=== PATIENT | male | born 1955 | race Caucasian/White ===

== ENCOUNTER → 2020-10-06 | Outpatient (CLI) | payer OTHER | LOC: LAB 11:19 | PROVIDERS: Emergency Medicine; Nurse Practitioner Acute Care | DX: E11.65 Type 2 diabetes mellitus with hyperglycemia (principal); E78.2 Mixed hyperlipidemia; R79.89 Other specified abnormal findings of blood chemistry | CPT/HCPCS: 36415; 80053; 81256 ==

== ENCOUNTER → 2020-11-05 | Outpatient (CLI) | payer OTHER ==
[2020-11-05 13:38] LABS: HEMOGLOBIN 15.9 gm/dl (14.0-17.5); RED BLOOD COUNT 5.15 M/UL (4.20-5.50); WHITE BLOOD COUNT 5.5 K/UL (4.5-11.0)
[2020-11-05 14:13] LABS: BUN/CREATININE RATIO 13 (0-10)
[2020-11-06 19:09] LABS: HEPATITIS C QUANTITATION HCV Not Detected IU/mL (.)
== END ==
LOC: LAB 12:07
PROVIDERS: Nurse Practitioner Acute Care
DX: R76.8 Other specified abnormal immunological findings in serum (principal); R74.01 Elevation of levels of liver transaminase levels; B19.20 Unspecified viral hepatitis C without hepatic coma; Z79.899 Other long term (current) drug therapy
CPT/HCPCS: 36415; 80053; 85027; 85610; 87522

== ENCOUNTER → 2020-11-23 | Outpatient (CLI) | payer OTHER ==
[2020-11-23 09:40] LABS: HEMOGLOBIN 14.5 gm/dl (14.0-17.5); RED BLOOD COUNT 4.62 M/UL (4.20-5.50); WHITE BLOOD COUNT 5.3 K/UL (4.5-11.0)
[2020-11-23 10:08] LABS: BUN/CREATININE RATIO 12 (0-10)
[2020-11-24 12:15] LABS: HBSAG SCREEN Negative (Negative); HEP A AB, IGM Negative (Negative); HEP B CORE AB, IGM Negative (Negative)
== END ==
LOC: LAB 08:41
PROVIDERS: Emergency Medicine; Nurse Practitioner Acute Care
DX: E83.110 Hereditary hemochromatosis (principal); R74.01 Elevation of levels of liver transaminase levels; R79.89 Other specified abnormal findings of blood chemistry; B19.20 Unspecified viral hepatitis C without hepatic coma; E11.42 Type 2 diabetes mellitus with diabetic polyneuropathy; E11.65 Type 2 diabetes mellitus with hyperglycemia; E11.69 Type 2 diabetes mellitus with other specified complication; E78.2 Mixed hyperlipidemia; I25.10 Atherosclerotic heart disease of native coronary artery without angina pectoris; I11.0 Hypertensive heart disease with heart failure; I50.22 Chronic systolic (congestive) heart failure; B00.1 Herpesviral vesicular dermatitis; B18.2 Chronic viral hepatitis C; F33.1 Major depressive disorder, recurrent, moderate; F52.21 Male erectile disorder; G44.89 Other headache syndrome; G47.33 Obstructive sleep apnea (adult) (pediatric); J15.8 Pneumonia due to other specified bacteria; J30.89 Other allergic rhinitis; J01.00 Acute maxillary sinusitis, unspecified; I95.2 Hypotension due to drugs; I25.5 Ischemic cardiomyopathy
CPT/HCPCS: 36415; 80053; 82728; 83036; 84550; 85027; 85610; 86705; 86709; 87340

== ENCOUNTER → 2020-11-29 | Outpatient (CLI) | payer OTHER | LOC: KOH-I 11-17 09:15 | DX: R74.01 Elevation of levels of liver transaminase levels (principal); K76.0 Fatty (change of) liver, not elsewhere classified; N28.1 Cyst of kidney, acquired | CPT/HCPCS: 76700 ==

== ENCOUNTER → 2020-12-23 | Outpatient (CLI) | payer OTHER ==
[2020-12-23 10:45] LABS: HEMOGLOBIN 13.7 gm/dl (14.0-17.5); RED BLOOD COUNT 4.42 M/UL (4.20-5.50); WHITE BLOOD COUNT 4.2 K/UL (4.5-11.0)
== END ==
LOC: LAB 09:27
PROVIDERS: Nurse Practitioner Acute Care
DX: R74.01 Elevation of levels of liver transaminase levels (principal)
CPT/HCPCS: 36415; 80053; 82728; 85027; 85610

== ENCOUNTER → 2021-01-10 | Outpatient (CLI) | payer OTHER | LOC: LAB 12:06 | DX: K74.5 Biliary cirrhosis, unspecified (principal) | CPT/HCPCS: 36415; 82728 ==

== ENCOUNTER 2021-08-19 02:26 | Inpatient (IN) | payer OTHER ==
[~2021-08-19] VITALS: Ht 180.3 cm; Wt 117.9 kg
[2021-08-19 02:41] LABS: HEMOGLOBIN 11.3 gm/dl (14.0-17.5); RED BLOOD COUNT 5.6 M/UL (4.20-5.50); WHITE BLOOD COUNT 13.8 K/UL (4.5-11.0)
[2021-08-19 03:46] LABS: BUN/CREATININE RATIO 12 (0-10)
[2021-08-19] MEDS ORDERED: BACLOFEN10 MG PO (10:23)
[2021-08-19] MEDS ORDERED: ASPIRIN EC81 MG PO (10:23)
[2021-08-19] MEDS ORDERED: ZETIA10 MG PO (10:24)
[2021-08-19] MEDS ORDERED: BUSPIRONE HCL15 MG PO (10:24)
[2021-08-19] MEDS ORDERED: DOCUSATE SODIU100 MG PO (10:24)
[2021-08-19] MEDS ORDERED: AMARYL2 MG PO (10:25)
[2021-08-19] MEDS ORDERED: ISOSORBIDE MONO30 MG PO (10:26)
[2021-08-19] MEDS ORDERED: LORATADINE10 MG PO (10:27)
[2021-08-19] MEDS ORDERED: GABAPENTIN800 MG PO (10:27)
[2021-08-19] MEDS ORDERED: METOPROLOL TART25 MG PO (10:27)
[2021-08-19] MEDS ORDERED: NITROSTAT0.4 MG SL (10:27)
[2021-08-19] MEDS ORDERED: PROTONIX 40 MG40 M1 PO (10:28)
[2021-08-19] MEDS ORDERED: NOVOLOG FL100 UNIT/1 INJ (10:28)
--- NOTE | 2021-08-19 10:28 | NUR ---
DOING BEDSIDE BRONC WASHING PER PULMONARY DR PAREKH, STAFF FROM [facility] TO ASSIST HIM, RESPIRATORY ALOS AT BEDSIDE HERBERT
[2021-08-19] MEDS ORDERED: OXYCODONE-ACET1 EACH PO (10:29)
[2021-08-19] MEDS ORDERED: SERTRALINE HCL50 MG PO (10:30)
[2021-08-19] MEDS ORDERED: RANEXA1000 MG PO (10:30)
[2021-08-19] MEDS ORDERED: SYNJARDY XR 251 EACH PO (10:31)
[2021-08-19] MEDS ORDERED: HYDROCHLOROTHIA25 MG PO (10:32)
[2021-08-19] MEDS ORDERED: ATORVASTATIN CA10 MG PO (10:32)
[2021-08-19] MEDS ORDERED: WELLBUTRIN SR100 MG PO (10:32)
[2021-08-19] MEDS ORDERED: TERBINAFINE HC250 MG PO (10:33)
[2021-08-20 05:30] LABS: HEMOGLOBIN 9.1 gm/dl (14.0-17.5); RED BLOOD COUNT 4.61 M/UL (4.20-5.50); WHITE BLOOD COUNT 6.7 K/UL (4.5-11.0)
[2021-08-21 05:20] LABS: HEMOGLOBIN 9.7 gm/dl (14.0-17.5); RED BLOOD COUNT 4.84 M/UL (4.20-5.50)
[2021-08-21 05:21] LABS: WHITE BLOOD COUNT 9.1 K/UL (4.5-11.0)
[2021-08-21 05:42] LABS: BUN/CREATININE RATIO 12 (0-10)
[2021-08-22 07:19] LABS: HEMOGLOBIN 9.7 gm/dl (14.0-17.5); RED BLOOD COUNT 4.84 M/UL (4.20-5.50); WHITE BLOOD COUNT 7.5 K/UL (4.5-11.0)
[2021-08-22 07:55] LABS: BUN/CREATININE RATIO 16 (0-10)
[2021-08-24 03:09] LABS: BUN/CREATININE RATIO 18 (0-10)
[2021-08-24] MEDS ORDERED: NEURONTIN400 MG PO (10:50)
[2021-08-24] MEDS ORDERED: LANTUS INS100 UTS/M1 SC (14:57)
[2021-08-24] MEDS ORDERED: HUMALOG 10100 UNITS/ SC (14:57)
== END 2021-08-24 15:46 | DRG 208 ==
LOC: ER1 02:26 → CDU 04:38 → M/S 04:38 → CCU 04:38 → M/S 08-22 18:33
PROVIDERS: Family Medicine; Internal Medicine; Internal Medicine Critical Care Medicine; ADMIT Internal Medicine
PROC: 0BH18EZ Insertion of Endotracheal Airway into Trachea, Via Natural or Artificial Opening Endoscopic (ICD-10-PCS; 2021-08-19)
PROC: 0DH67UZ Insertion of Feeding Device into Stomach, Via Natural or Artificial Opening (ICD-10-PCS; 2021-08-19)
PROC: 0BC78ZZ Extirpation of Matter from Left Main Bronchus, Via Natural or Artificial Opening Endoscopic (ICD-10-PCS; 2021-08-19)
PROC: 0BC38ZZ Extirpation of Matter from Right Main Bronchus, Via Natural or Artificial Opening Endoscopic (ICD-10-PCS; 2021-08-19)
PROC: 5A1945Z Respiratory Ventilation, 24-96 Consecutive Hours (ICD-10-PCS; principal; 2021-08-19 10:18)
PROC: 5A09457 Assistance with Respiratory Ventilation, 24-96 Consecutive Hours, Continuous Positive Airway Pressure (ICD-10-PCS; 2021-08-20)
PROC: 5A12012 Performance of Cardiac Output, Single, Manual (ICD-10-PCS; 2021-08-24)
DX: J96.01 Acute respiratory failure with hypoxia (principal); J69.0 Pneumonitis due to inhalation of food and vomit; G93.41 Metabolic encephalopathy; I50.22 Chronic systolic (congestive) heart failure; I13.0 Hypertensive heart and chronic kidney disease with heart failure and stage 1 through stage 4 chronic kidney disease, or unspecified chronic kidney disease; Z20.822 Contact with and (suspected) exposure to COVID-19; I25.10 Atherosclerotic heart disease of native coronary artery without angina pectoris; E11.9 Type 2 diabetes mellitus without complications; E78.5 Hyperlipidemia, unspecified; N18.30 Chronic kidney disease, stage 3 unspecified; E11.22 Type 2 diabetes mellitus with diabetic chronic kidney disease; F17.210 Nicotine dependence, cigarettes, uncomplicated; J44.9 Chronic obstructive pulmonary disease, unspecified; Z95.5 Presence of coronary angioplasty implant and graft; Z95.810 Presence of automatic (implantable) cardiac defibrillator; Z79.82 Long term (current) use of aspirin; Z79.899 Other long term (current) drug therapy; Z83.3 Family history of diabetes mellitus
CPT/HCPCS: 31500; 36415; 36600; 51702; 70450; 71045; 71275; 74018; 80048; 80053; 82550; 82553; 82803; 82962; 83605; 83735; 83874; 84100; 84484; 85025; 85610; 85730; 87015; 87040; 87070; 87116; 87205; 87206; 87278; 92526; 92610; 93005; 94002; 94003; 94640; 94660; 94664; 94760; 96374; 96375; 97110-GP-CQ; 97116-GP-CQ; 97161; 97166; 97530-GP-CQ; 99285; C9113; J0696; J1650; J2250; J2405; J2704; J3010; J3370; J7030; J7070; Q9967; U0002

== ENCOUNTER → 2022-01-26 | Outpatient (CLI) | payer OTHER ==
[~2022-01-26] MED LIST: AMARYL2 MG PO; ASPIRIN EC81 MG PO; ATORVASTATIN CA10 MG PO; BACLOFEN10 MG PO; BUSPIRONE HCL15 MG PO; DOCUSATE SODIU100 MG PO; GABAPENTIN800 MG PO; HUMALOG 10100 UNITS/ SC; HYDROCHLOROTHIA25 MG PO; ISOSORBIDE MONO30 MG PO; LANTUS INS100 UTS/M1 SC; LORATADINE10 MG PO; METOPROLOL TART25 MG PO; NEURONTIN400 MG PO; NITROSTAT0.4 MG SL; NOVOLOG FL100 UNIT/1 INJ; OXYCODONE-ACET1 EACH PO; PROTONIX 40 MG40 M1 PO; RANEXA1000 MG PO; SERTRALINE HCL50 MG PO; SYNJARDY XR 251 EACH PO; TERBINAFINE HC250 MG PO; WELLBUTRIN SR100 MG PO; ZETIA10 MG PO
== END ==
LOC: KOH-I 01-20 10:30
DX: R10.814 Left lower quadrant abdominal tenderness (principal)
CPT/HCPCS: 74176

== ENCOUNTER 2022-04-10 12:03 | Emergency (ER) | payer OTHER ==
[2022-04-10 13:13] LABS: HEMOGLOBIN 13.6 gm/dl (14.0-17.5); RED BLOOD COUNT 5.09 M/UL (4.20-5.50)
== END 2022-04-10 19:00 | disposition home or self-care (01) ==
LOC: ER1 12:03
PROVIDERS: Physician Assistant
DX: U07.1 COVID-19 (principal); I25.2 Old myocardial infarction; E11.9 Type 2 diabetes mellitus without complications; I10 Essential (primary) hypertension; F17.210 Nicotine dependence, cigarettes, uncomplicated; Z95.5 Presence of coronary angioplasty implant and graft; Z79.4 Long term (current) use of insulin
CPT/HCPCS: 0240U; 70450; 71045; 80053; 81001; 82550; 82553; 83605; 84484; 85025; 85610; 85652; 85730; 86140; 93005; 96374; 99285; J0696; M0222